=== PATIENT | male | born 1950 | race Hispanic/Latino ===

== ENCOUNTER 2022-08-26 17:50 | Emergency (ER) | payer MEDICARE, OTHER ==
[~2022-08-26] VITALS: Ht 182.9 cm; Wt 104.3 kg
[~2022-08-26 17:50] MED LIST: AVALIDE 150-121 EACH PO
[2022-08-26] MEDS ORDERED: DIPHTH/TETANUS/ACEL. PERTUSSIS 0.5 ML SYR IM ONE (18:30)
[2022-08-26] MEDS ORDERED: TRAMADOL HCL 50 MG TAB PO ONE (18:30)
[2022-08-26 20:22] VITALS: BP 154/86
== END 2022-08-26 20:26 | disposition home or self-care (01) ==
LOC: ER 18:19
DX: S13.8XXA Sprain of joints and ligaments of other parts of neck, initial encounter (principal); S40.012A Contusion of left shoulder, initial encounter; S50.811A Abrasion of right forearm, initial encounter; S60.512A Abrasion of left hand, initial encounter; S80.01XA Contusion of right knee, initial encounter; V43.52XA Car driver injured in collision with other type car in traffic accident, initial encounter; Y92.488 Other paved roadways as the place of occurrence of the external cause
CPT/HCPCS: 70450; 71045; 72125; 90714; 99283

== ENCOUNTER 2022-10-08 10:14 | Emergency (ER) | payer MEDICARE ==
[~2022-10-08] VITALS: Ht 182.9 cm; Wt 103.4 kg
[2022-10-08] MEDS ORDERED: LOVASTATIN40 MG PO (10:29)
[2022-10-08] MEDS ORDERED: ALLOPURINOL100 MG PO (10:29)
[2022-10-08] MEDS ORDERED: DEXAMETHASONE SOD PHOS 10 MG/1 ML VIAL IV ONE (10:45)
[2022-10-08] MEDS ORDERED: MEDROL4 M2 PO (11:53)
[2022-10-08 12:30] VITALS: BP 133/90
== END 2022-10-08 12:25 | disposition home or self-care (01) ==
LOC: ER 10:20
DX: R05.9 Cough, unspecified (principal); J40 Bronchitis, not specified as acute or chronic; I10 Essential (primary) hypertension; E78.5 Hyperlipidemia, unspecified; M10.9 Gout, unspecified; R94.31 Abnormal electrocardiogram [ECG] [EKG]
CPT/HCPCS: 71045; 83518; 87070; 93005; 99283; J1100